=== PATIENT | male | born 1950 | race Asian ===

== ENCOUNTER 2024-10-04 20:39 | Emergency (ER) | payer MEDICARE ==
[~2024-10-04] VITALS: Ht 172.7 cm; Wt 75.0 kg
[2024-10-04 20:49] VITALS: TEMP 96.4
[2024-10-04 22:35] LABS: PLATELET COUNT (AUTO) 218 K/uL (150-450); RED BLOOD CELL COUNT(AUTO) 4.09 MIL/uL (4.50-5.90); RED CELL DISTRIBUTION WIDTH 13.1 % (11.5-14.5); WHITE BLOOD COUNT (AUTO) 9.9 K/uL (4.5-11.0)
[2024-10-04 22:44] LABS: CALCIUM, TOTAL 8.7 mg/dL (8.8-10.5); CREATININE 1.17 mg/dL (0.60-1.30); GLOMERULAR FILTR. RATE CALC > 60 mL/min (>60); GLUCOSE,RANDOM 141 mg/dL (70-110); SODIUM SERUM 138 mmol/L (136-145); UREA NITROGEN, BLOOD 14 mg/dL (7-18)
[2024-10-05] MEDS: SODIUM CHLORIDE 0.9% 1,000 ML IV ONE (03:30)
[2024-10-05] MEDS: MECLIZINE HCL 25 MG TABLET PO ONE (03:30)
[2024-10-05 03:37] LABS: CALCIUM, TOTAL 9.0 mg/dL (8.8-10.5); CREATININE 1.05 mg/dL (0.60-1.30); GLOMERULAR FILTR. RATE CALC > 60 mL/min (>60); GLUCOSE,RANDOM 114 mg/dL (70-110); SODIUM SERUM 139 mmol/L (136-145); UREA NITROGEN, BLOOD 14 mg/dL (7-18)
[2024-10-05 03:47] LABS: TROPONIN I-HIGH SENSITIVITY 6 ng/L (<76)
[2024-10-05] MEDS ORDERED: AZIT250T9 PO (05:46)
[2024-10-05] MEDS ORDERED: MECL-302 PO (05:46)
[2024-10-05 06:01] VITALS: BP 147/81; PULSE 78; RESP 14; O2SAT 95
[2024-10-05] MEDS: AZITHROMYCIN 500 MG TABLET PO ONE (06:03)
== END 2024-10-05 06:06 | disposition home or self-care (01) ==
LOC: EMS 20:39
DX: J18.8 Other pneumonia, unspecified organism (principal); R51.9 Headache, unspecified; E78.00 Pure hypercholesterolemia, unspecified; I10 Essential (primary) hypertension; M19.90 Unspecified osteoarthritis, unspecified site
CPT/HCPCS: 99285; 71045; 80048; 83690; 83880; 84484; 85025; 36415; 93005; 96360; 96361; J0456; J7030